=== PATIENT | male | born 1995 | race Two or more races ===

== ENCOUNTER 2025-04-17 19:00 | Emergency (ER) | payer SELFPAY ==
[~2025-04-17] VITALS: Ht 177.8 cm; Wt 65.0 kg
[2025-04-17 19:02] VITALS: BP 145/94; PULSE 90; RESP 18; TEMP 98.1; O2SAT 100
== END 2025-04-18 00:32 | disposition left against medical advice (07) ==
LOC: ER 19:00
DX: F41.9 Anxiety disorder, unspecified (principal); Z53.21 Procedure and treatment not carried out due to patient leaving prior to being seen by health care provider